=== PATIENT | male | born 1965 | race African-American/Black ===

== ENCOUNTER 2018-03-17 18:30 | Emergency (ER) | payer OTHER ==
[~2018-03-17] VITALS: Ht 188 cm; Wt 84.4 kg
[2018-03-17 18:41] VITALS: BP 140/75
--- NOTE | 2018-03-17 18:41 | NUR ---
PATIENT AMBULATED TO BED # 10
--- NOTE | 2018-03-17 18:44 | NUR ---
DR. BREWER AT BEDSIDE ASSESSING PATIENT
[2018-03-17 18:53] VITALS: BP 140/75
--- NOTE | 2018-03-17 18:53 | NUR ---
Patient discharged with v/s stable. Written and verbal after care instructions given and explained. Patient verbalized understanding. Ambulatory with steady gait. All questions addressed prior to discharge. Advised to follow up with PMD.
== END 2018-03-17 18:53 | disposition home or self-care (01) ==
LOC: MED 18:30
DX: Z22.322 Carrier or suspected carrier of Methicillin resistant Staphylococcus aureus (principal)
CPT/HCPCS: 87081; 99283